=== PATIENT | male | born 1970 | race Caucasian/White ===

== ENCOUNTER 2022-10-25 09:16 | Day surgery (SDC) | payer OTHER ==
[2022-10-23 10:49] VITALS: BMI 18.2
[~2022-10-25 09:16] MED LIST: LACTATED RINGERS 1,000 ML IV SCH; LIDOCAINE 1% (10MG/ML) FOR IV START INTRADERMA PRN
[2022-10-25 09:47] VITALS: RESP 16; TEMP 97
[2022-10-25] MEDS ORDERED: PROPOFOL 10 MG/ML 20 ML VIAL IV ONE (09:54)
[2022-10-25] MEDS ORDERED: LIDOCAINE 2% INJ 20 MG/ML (2 ML VIAL) ONE (09:54)
--- NOTE | 2022-10-25 09:58 | P.GSHP ---
History of Present Illness H&P Date: 10/25/22 Chief Complaint: Dysphagia This a 52-year-old male presents today for EGD. He's had issues with dysphagia. Patient feels getting stuck in his lower esophagus. He has some mild GERD. Past Medical History Past Medical History: Osteoarthritis (OA) History of Any Multi-Drug Resistant Organisms: None Reported Additional Past Surgical History / Comment(s): RIGHT LEG SURGERY FOR FRACTURE Past Anesthesia/Blood Transfusion Reactions: No Reported Reaction Smoking Status: Former smoker - Past Family History Daughter(s) Family Medical History: Cancer Medications and Allergies Home Medications Medication Instructions Recorded Confirmed Type Acetaminophen Tab [Tylenol] 650 mg PO Q4H PRN 10/23/22 10/25/22 History Allergies Allergy/AdvReac Type Severity Reaction Status Date / Time No Known Allergies Allergy Verified 10/25/22 09:38 Surgical - Exam Vital Signs Temp Pulse Resp BP Pulse Ox 97.0 F L 88 16 127/81 98 10/25/22 09:40 10/25/22 09:40 10/25/22 09:40 10/25/22 09:40 10/25/22 09:40 - General well developed, well nourished, no distress - Eyes PERRL - ENT normal pinna - Neck no masses - Respiratory normal expansion - Cardiovascular Rhythm: regular - Abdomen Abdomen: soft, non tender Assessment and Plan Assessment: Dysphagia. We'll perform EGD.
--- NOTE | 2022-10-25 10:05 | P.OP ---
Date of Procedure: 10/25/22 Preoperative Diagnosis: Dysphagia Postoperative Diagnosis: Esophagitis Sliding hiatal hernia Procedure(s) Performed: EGD Anesthesia: MAC Surgeon: Salinas Lopez Pathology: other (Antrum, esophagus) Condition: stable Disposition: PACU Description of Procedure: The patient's placed on the endoscopy table in the lateral position. He received IV sedation. The gastro- oropharynx passed in the esophagus and stomach. Scope was then placed through the pylorus. The first and second portion of the duodenum appeared normal. Scope was then brought back the antrum this was mildly inflamed. A biopsies performed. The scope was then retroflexed and the patient had a sliding hiatal hernia. The GE junction was at 38 cm per the distal esophagus appeared inflamed. This was biopsied. The proximal esophagus appeared normal. Scope withdrawn for patient.
[2022-10-25 10:48] VITALS: BP 118/78; PULSE 85
== END 2022-10-25 11:03 | disposition home or self-care (01) ==
LOC: ORWHC2ENDO 09:16
PROVIDERS: ATTEND Surgery
DX: K29.50 Unspecified chronic gastritis without bleeding (principal); K44.9 Diaphragmatic hernia without obstruction or gangrene; K21.00 Gastro-esophageal reflux disease with esophagitis, without bleeding; M19.90 Unspecified osteoarthritis, unspecified site; Z87.81 Personal history of (healed) traumatic fracture; Z87.891 Personal history of nicotine dependence; Z79.1 Long term (current) use of non-steroidal anti-inflammatories (NSAID)
CPT/HCPCS: 43239; J2704; J2001; 88305